=== PATIENT | male | born 1990 | race Caucasian/White ===

== ENCOUNTER 2022-01-21 01:33 | Emergency (ER) | payer OTHER ==
[~2022-01-21] VITALS: Ht 165.1 cm; Wt 95.3 kg
[2022-01-21 01:37] VITALS: BP_SYST 145
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
--- NOTE | 2022-01-21 02:00 | NUR ---
Patient given written and verbal discharge instructions and verbalizes understanding. ER MD discussed with patient the results and treatment provided. Patient in stable condition. Patient educated on pain management and to follow up with PMD. Pain Scale 0/10. Opportunity for questions provided and answered. Medication side effect fact sheet provided. [facility] stated pt to be released to after blood draw and DC. Patient skin intact.
[2022-01-21 02:05] VITALS: BP_SYST 125
== END 2022-01-21 02:05 ==
LOC: SED 01:33
DX: F10.129 Alcohol abuse with intoxication, unspecified (principal); Y90.9 Presence of alcohol in blood, level not specified
CPT/HCPCS: 99283